=== PATIENT | male | born 1975 | race Two or more races ===

== ENCOUNTER 2018-08-31 13:20 | Inpatient (IN) | payer OTHER ==
[~2018-08-31] VITALS: Ht 182.9 cm; Wt 107.0 kg
[2018-08-31 13:59] LABS: BASOPHIL % 0.5 % (0-2); PLATELET COUNT 172 x10^3mcL (130-400)
[2018-08-31 14:04] LABS: RED CELL DISTRIBUTION WIDTH 22.9 % (11.5-14.5)
[2018-08-31 14:26] LABS: T3 TOTAL 1.1 ng/mL
[2018-08-31 14:31] LABS: CALCIUM 8.6 mg/dL (8.5-10.1); CHLORIDE SERUM 105 mmol/L (98-107); GFR1 > 60 mL/min; GLUCOSE SERUM 175 mg/dL (74-106); POTASSIUM SERUM 4.6 mmol/L (3.5-5.1); SODIUM SERUM 138 mmol/L (136-145)
[2018-08-31 14:43] LABS: ALBUMIN 3.5 g/dL (3.4-5.0); ALKALINE PHOSPHATASE 110 U/L (46-116); ALT/SGPT 283 U/L (16-63); AST/SGOT 307 U/L (15-37); BILIRUBIN TOTAL 0.95 mg/dL (0.20-1.00)
[2018-08-31 14:47] LABS: FREE T4 1.28 ng/dL (0.76-1.46); FREE THYROXINE INDEX 3.6 ug/dL (1.4-4.5); T4(THYROXINE) 8.9 ug/dL (4.7-13.3)
[2018-08-31 14:52] LABS: TOTAL PROTEIN, SERUM 8.3 g/dL (6.4-8.2)
[2018-08-31 16:29] LABS: AMPHETAMINE QUAL UR NONE DETECTED (See below)
[2018-08-31] MEDS ORDERED: LISINOPRIL2.5 MG (17:34)
[2018-08-31 17:35] LABS: microscopic required? YES; urine erythrocyte NEGATIVE (NEGATIVE)
[2018-08-31 17:38] LABS: MAGNESIUM 1.6 mg/dL (1.8-2.4); PHOSPHOROUS 2.3 mg/dL (2.5-4.9)
[2018-08-31 17:40] LABS: CHOLESTEROL/HDL RATIO 4.1
[2018-08-31 18:06] VITALS: BP 175/111
[2018-08-31 20:30] VITALS: BP 164/101
[2018-08-31 22:04] VITALS: BP 148/90
[2018-09-01 06:19] VITALS: BP 170/117
[2018-09-01 06:23] LABS: BASOPHIL % 0.5 % (0-2); PLATELET COUNT 138 x10^3mcL (130-400)
[2018-09-01 06:41] LABS: RED CELL DISTRIBUTION WIDTH 22.5 % (11.5-14.5)
[2018-09-01 07:06] LABS: CALCIUM 8.3 mg/dL (8.5-10.1); CARBON DIOXIDE 27.2 mmol/L (21-32); CHLORIDE SERUM 102 mmol/L (98-107); CREATININE SERUM 0.8 mg/dL (0.7-1.3); GFR1 > 60 mL/min; GLUCOSE SERUM 97 mg/dL (74-106); MAGNESIUM 1.7 mg/dL (1.8-2.4); PHOSPHOROUS 3.5 mg/dL (2.5-4.9); POTASSIUM SERUM 4.1 mmol/L (3.5-5.1); SODIUM SERUM 137 mmol/L (136-145)
[2018-09-01 08:52] LABS: ovalocyte/elliptocyte 1+; rbc morphology (normal/abnorm) ABNORMAL (NORMAL); tear drop cell (dacryocyte) 1+
[2018-09-01 09:35] VITALS: BP 154/104
[2018-09-01 13:51] VITALS: BP 178/110
[2018-09-01 17:30] VITALS: BP 158/103
[2018-09-01 20:44] VITALS: BP 159/111
[2018-09-02 06:16] VITALS: BP 168/118
[2018-09-02 08:00] LABS: CALCIUM 8.7 mg/dL (8.5-10.1); CARBON DIOXIDE 24.7 mmol/L (21-32); CHLORIDE SERUM 104 mmol/L (98-107); CREATININE SERUM 0.8 mg/dL (0.7-1.3); GFR1 > 60 mL/min; GLUCOSE SERUM 95 mg/dL (74-106); MAGNESIUM 1.9 mg/dL (1.8-2.4); PHOSPHOROUS 4.5 mg/dL (2.5-4.9); POTASSIUM SERUM 3.9 mmol/L (3.5-5.1); SODIUM SERUM 140 mmol/L (136-145)
[2018-09-02 08:22] LABS: BASOPHIL % 0.4 % (0-2); PLATELET COUNT 159 x10^3mcL (130-400); RED CELL DISTRIBUTION WIDTH 22.9 % (11.5-14.5)
[2018-09-02 08:23] LABS: rbc morphology (normal/abnorm) ABNORMAL (NORMAL)
[2018-09-02 10:58] LABS: BILIRUBIN DIRECT 0.37 mg/dL (0.0-0.2); BILIRUBIN TOTAL 1.13 mg/dL (0.20-1.00); TOTAL PROTEIN, SERUM 7.6 g/dL (6.4-8.2)
[2018-09-02 10:59] LABS: ALBUMIN 3.2 g/dL (3.4-5.0)
[2018-09-02 11:07] VITALS: BP 165/110
[2018-09-02 13:04] VITALS: BP 145/110
[2018-09-02] MEDS ORDERED: ZES5 PO (14:21)
[2018-09-02] MEDS ORDERED: METOPROLOL TART25 M1 PO (14:21)
[2018-09-02] MEDS ORDERED: METFORMIN HCL500 MG PO (14:22)
[2018-09-02 14:58] VITALS: BP 145/110
== END 2018-09-02 15:50 | disposition home or self-care (01) | DRG 756 ==
LOC: ED 13:20 → DU 17:03 → MU 09-02 10:51
PROVIDERS: Emergency Medicine; Family Medicine
DX: F41.9 Anxiety disorder, unspecified (principal); E83.39 Other disorders of phosphorus metabolism; F10.20 Alcohol dependence, uncomplicated; E83.42 Hypomagnesemia; E78.5 Hyperlipidemia, unspecified; R00.0 Tachycardia, unspecified; G47.00 Insomnia, unspecified; I10 Essential (primary) hypertension; L20.9 Atopic dermatitis, unspecified; Y90.9 Presence of alcohol in blood, level not specified; E11.9 Type 2 diabetes mellitus without complications
CPT/HCPCS: 82962; 83880; 84439; A9500; G0480; J2060; J2785; J7030; Q0092

== ENCOUNTER 2018-11-29 21:21 | Inpatient (IN) | payer OTHER ==
[~2018-11-29] VITALS: Ht 180.3 cm; Wt 111.6 kg
[~2018-11-29 21:21] MED LIST: LISINOPRIL2.5 MG; METFORMIN HCL500 MG PO; METOPROLOL TART25 M1 PO; ZES5 PO
[2018-11-29 21:24] VITALS: Ht 180.3 cm; Wt 111.6 kg
[2018-11-29 23:11] LABS: PLATELET COUNT 360 x10^3mcL (130-400)
[2018-11-29 23:12] LABS: RED CELL DISTRIBUTION WIDTH 20.4 % (11.5-14.5)
[2018-11-29 23:19] LABS: CALCIUM 6.6 mg/dL (8.5-10.1); CARBON DIOXIDE 21.3 mmol/L (21-32); CHLORIDE SERUM 107 mmol/L (98-107); GFR1 > 60 mL/min; GLUCOSE SERUM 178 mg/dL (74-106); POTASSIUM SERUM 3.5 mmol/L (3.5-5.1); SODIUM SERUM 140 mmol/L (136-145)
[2018-11-29 23:31] LABS: ALKALINE PHOSPHATASE 329 U/L (46-116); ALT/SGPT 57 U/L (16-63); AST/SGOT 365 U/L (15-37); BILIRUBIN TOTAL 2.5 mg/dL (0.20-1.00); LIPASE 462 IU/L (73-393); TOTAL PROTEIN, SERUM 7.9 g/dL (6.4-8.2)
[2018-11-29 23:48] LABS: MONOCYTE 3 % (0-7); SEGMENTED NEUTROPHILS 90 % (37-75)
[2018-11-30] VITALS (7 sets, daily range): BP systolic 137–169; BP diastolic 87–107
[2018-11-30] LABS: rbc morphology (normal/abnorm) ABNORMAL (NORMAL)
[2018-11-30 01:19] LABS: MAGNESIUM 1.6 mg/dL (1.8-2.4); PHOSPHOROUS 1.6 mg/dL (2.5-4.9)
[2018-11-30 01:20] LABS: CHOLESTEROL/HDL RATIO 20.3
[2018-11-30 01:28] LABS: T3 TOTAL 1.01 ng/mL
[2018-11-30 01:30] LABS: FREE T4 1.56 ng/dL (0.76-1.46); FREE THYROXINE INDEX 3.7 ug/dL (1.4-4.5); T4(THYROXINE) 9.2 ug/dL (4.7-13.3)
[2018-11-30 06:16] LABS: PLATELET COUNT 284 x10^3mcL (130-400)
[2018-11-30 06:25] LABS: ALKALINE PHOSPHATASE 290 U/L (46-116); ALT/SGPT 50 U/L (16-63); AST/SGOT 338 U/L (15-37); BILIRUBIN DIRECT 2.01 mg/dL (0.0-0.2); BILIRUBIN TOTAL 2.72 mg/dL (0.20-1.00); CALCIUM 6.8 mg/dL (8.5-10.1); CARBON DIOXIDE 23.4 mmol/L (21-32); CHLORIDE SERUM 108 mmol/L (98-107); CREATININE SERUM 0.8 mg/dL (0.7-1.3); GFR1 > 60 mL/min; GLUCOSE SERUM 113 mg/dL (74-106); LIPASE 337 IU/L (73-393); MAGNESIUM 1.9 mg/dL (1.8-2.4); PHOSPHOROUS 1.8 mg/dL (2.5-4.9); POTASSIUM SERUM 3.4 mmol/L (3.5-5.1); SODIUM SERUM 143 mmol/L (136-145); TOTAL PROTEIN, SERUM 7.3 g/dL (6.4-8.2)
[2018-11-30 06:31] LABS: RED CELL DISTRIBUTION WIDTH 20.7 % (11.5-14.5)
[2018-11-30 06:37] LABS: ALBUMIN 1.8 g/dL (3.4-5.0)
[2018-11-30 07:29] LABS: microscopic required? NO
[2018-11-30 07:51] LABS: AMPHETAMINE QUAL UR NONE DETECTED (See below)
[2018-11-30 08:10] LABS: UA SPECIFIC GRAVITY 1.025 (1.005-1.035); urine erythrocyte NEGATIVE (NEGATIVE)
[2018-11-30 10:21] LABS: BAND NEUTROPHIL 0 % (0-10); BASOPHIL 0 % (0-2); MONOCYTE 4 % (0-7); SEGMENTED NEUTROPHILS 90 % (37-75)
[2018-11-30 10:22] LABS: rbc morphology (normal/abnorm) ABNORMAL (NORMAL)
[2018-11-30 10:23] LABS: PLATELET MORPHOLOGY PLATELETS INCREASED
[2018-12-01 07:07] VITALS: BP 127/72
[2018-12-01 07:30] LABS: BASOPHIL % 0.8 % (0-2); PLATELET COUNT 200 x10^3mcL (130-400)
[2018-12-01 07:33] LABS: RED CELL DISTRIBUTION WIDTH 18.5 % (11.5-14.5)
[2018-12-01 08:14] LABS: CARBON DIOXIDE 24.9 mmol/L (21-32); CHLORIDE SERUM 106 mmol/L (98-107); GFR1 > 60 mL/min; GLUCOSE SERUM 104 mg/dL (74-106); MAGNESIUM 1.4 mg/dL (1.8-2.4); PHOSPHOROUS 1.7 mg/dL (2.5-4.9); SODIUM SERUM 140 mmol/L (136-145)
[2018-12-01 10:03] VITALS: BP 124/78
[2018-12-01 12:38] LABS: PLATELET COUNT 212 x10^3mcL (130-400)
[2018-12-01 13:18] VITALS: BP 118/74
[2018-12-01 13:45] LABS: RED CELL DISTRIBUTION WIDTH 19.4 % (11.5-14.5)
[2018-12-01 14:20] LABS: BAND NEUTROPHIL 16 % (0-10); BASOPHIL 0 % (0-2); MONOCYTE 2 % (0-7); SEGMENTED NEUTROPHILS 73 % (37-75)
[2018-12-01 14:21] LABS: PLATELET MORPHOLOGY GIANT PLATELET SEEN; rbc morphology (normal/abnorm) ABNORMAL (NORMAL); target cell (codocyte) 2+
[2018-12-01 17:43] VITALS: BP 103/54
[2018-12-01 19:04] LABS: PLATELET COUNT 237 x10^3mcL (130-400)
[2018-12-01 19:06] LABS: RED CELL DISTRIBUTION WIDTH 19.3 % (11.5-14.5)
[2018-12-01 19:21] LABS: BAND NEUTROPHIL 7 % (0-10); METAMYELOCTE 1 % (0-2); MONOCYTE 4 % (0-7); SEGMENTED NEUTROPHILS 71 % (37-75)
[2018-12-01 19:24] LABS: PLATELET MORPHOLOGY LARGE PLATELET SEEN; rbc morphology (normal/abnorm) ABNORMAL (NORMAL); target cell (codocyte) 2+
[2018-12-01 20:11] VITALS: BP 125/78
[2018-12-02 01:18] LABS: PLATELET COUNT 209 x10^3mcL (130-400)
[2018-12-02 01:29] LABS: RED CELL DISTRIBUTION WIDTH 17.9 % (11.5-14.5)
[2018-12-02 01:36] LABS: BAND NEUTROPHIL 5 % (0-10); METAMYELOCTE 1 % (0-2); MONOCYTE 3 % (0-7); MYELOCYTE 1 % (0-2); SEGMENTED NEUTROPHILS 75 % (37-75)
[2018-12-02 01:39] LABS: PLATELET MORPHOLOGY PLATELETS NORMAL; rbc morphology (normal/abnorm) ABNORMAL (NORMAL); target cell (codocyte) 1+
[2018-12-02 05:55] VITALS: BP 123/78
[2018-12-02 07:23] LABS: PLATELET COUNT 239 x10^3mcL (130-400)
[2018-12-02 07:32] LABS: RED CELL DISTRIBUTION WIDTH 19.2 % (11.5-14.5)
[2018-12-02 07:41] LABS: CALCIUM 7.7 mg/dL (8.5-10.1); CARBON DIOXIDE 25.5 mmol/L (21-32); CHLORIDE SERUM 108 mmol/L (98-107); GFR1 > 60 mL/min; GLUCOSE SERUM 93 mg/dL (74-106); MAGNESIUM 1.8 mg/dL (1.8-2.4); PHOSPHOROUS 1.9 mg/dL (2.5-4.9); POTASSIUM SERUM 4.2 mmol/L (3.5-5.1); SODIUM SERUM 144 mmol/L (136-145)
[2018-12-02 09:55] VITALS: BP 141/75
[2018-12-02] MEDS ORDERED: L40I PO (15:17)
[2018-12-02] MEDS ORDERED: ALD50 PO (15:17)
[2018-12-02] MEDS ORDERED: NATURAL IRON65 MG PO (15:18)
[2018-12-02] MEDS ORDERED: LACTULOSE10 GM/152 PO (15:19)
[2018-12-02 15:50] VITALS: BP 138/82
[2018-12-02 16:00] VITALS: BP 134/82
[2018-12-02 17:25] LABS: BAND NEUTROPHIL 3 % (0-10); BASOPHIL 0 % (0-2); MONOCYTE 1 % (0-7); SEGMENTED NEUTROPHILS 73 % (37-75); rbc morphology (normal/abnorm) ABNORMAL (NORMAL)
== END 2018-12-02 16:31 | disposition home or self-care (01) | DRG 720 ==
LOC: ED 21:21 → DU 11-30 00:01
PROVIDERS: Emergency Medicine; Internal Medicine Gastroenterology; ADMIT Internal Medicine
PROC: 0DJ08ZZ Inspection of Upper Intestinal Tract, Via Natural or Artificial Opening Endoscopic (ICD-10-PCS; principal; 2018-12-01 07:30)
PROC: 0DBG8ZZ Excision of Left Large Intestine, Via Natural or Artificial Opening Endoscopic (ICD-10-PCS; 2018-12-02 10:30)
DX: A41.9 Sepsis, unspecified organism (principal); G92 Toxic encephalopathy; K85.20 Alcohol induced acute pancreatitis without necrosis or infection; E87.2 Acidosis; E44.0 Moderate protein-calorie malnutrition; D62 Acute posthemorrhagic anemia; E83.39 Other disorders of phosphorus metabolism; E11.65 Type 2 diabetes mellitus with hyperglycemia; E83.51 Hypocalcemia; K70.31 Alcoholic cirrhosis of liver with ascites; F10.129 Alcohol abuse with intoxication, unspecified; E66.9 Obesity, unspecified; D12.4 Benign neoplasm of descending colon; K64.8 Other hemorrhoids; E78.5 Hyperlipidemia, unspecified; I10 Essential (primary) hypertension; Y90.0 Blood alcohol level of less than 20 mg/100 ml; Z68.32 Body mass index [BMI] 32.0-32.9, adult; Z79.84 Long term (current) use of oral hypoglycemic drugs; Z79.899 Other long term (current) drug therapy; Z71.41 Alcohol abuse counseling and surveillance of alcoholic
CPT/HCPCS: 43235; 45378; 84439; 87804; C9113; G0480; J1200; J1610; J1940; J2060; J2250; J2310; J2354; J2405; J2543; J3010; J3411; J3475; J3490; J7030; Q0092

== ENCOUNTER 2019-02-11 14:23 | Inpatient (IN) | payer OTHER ==
[~2019-02-11] VITALS: Ht 182.9 cm; Wt 86.8 kg
[~2019-02-11 14:23] MED LIST changes: +ALD50 PO; +L40I PO; +LACTULOSE10 GM/152 PO; +NATURAL IRON65 MG PO
[2019-02-11 14:25] VITALS: Ht 182.9 cm; Wt 86.8 kg
[2019-02-11 15:25] LABS: BASOPHIL % 0.9 % (0-2); PLATELET COUNT 186 x10^3mcL (130-400)
[2019-02-11 15:26] LABS: RED CELL DISTRIBUTION WIDTH 15.8 % (11.5-14.5)
[2019-02-11 15:37] LABS: CARBON DIOXIDE 18.1 mmol/L (21-32); CHLORIDE SERUM 102 mmol/L (98-107); CREATININE SERUM 1.4 mg/dL (0.7-1.3); GFR1 59 mL/min; GLUCOSE SERUM 152 mg/dL (74-106); POTASSIUM SERUM 3.6 mmol/L (3.5-5.1); SODIUM SERUM 140 mmol/L (136-145)
[2019-02-11 15:47] LABS: FREE T4 1.53 ng/dL (0.76-1.46)
[2019-02-11 15:50] LABS: ALKALINE PHOSPHATASE 136 U/L (46-116); ALT/SGPT 32 U/L (16-63); AST/SGOT 59 U/L (15-37); BILIRUBIN TOTAL 3.4 mg/dL (0.20-1.00); C REACTIVE PROTEIN 1.3 mg/dL (<=0.9)
[2019-02-11 15:57] LABS: TOTAL PROTEIN, SERUM 9.4 g/dL (6.4-8.2)
[2019-02-11 16:24] LABS: ERYTHROCYTE SED RATE 109 mm/hr (0-15)
[2019-02-11 16:28] LABS: CK-MB 0.5 ng/mL (0-3.6)
[2019-02-11] MEDS ORDERED: BENADRYL ALLERG25 M1 PO (16:29)
[2019-02-11] MEDS ORDERED: NATURE'S BLEND F1 MG PO (16:30)
[2019-02-11] MEDS ORDERED: PRILOSEC OTC20 M1 PO (16:30)
[2019-02-11 17:43] LABS: T3 TOTAL 0.92 ng/mL
[2019-02-11 19:19] LABS: MAGNESIUM 1.5 mg/dL (1.8-2.4); PHOSPHOROUS 2.6 mg/dL (2.5-4.9)
[2019-02-11 19:44] LABS: CHOLESTEROL/HDL RATIO 4.2
[2019-02-11 19:54] LABS: microscopic required? YES; urine erythrocyte TRACE (NEGATIVE)
[2019-02-11 20:01] VITALS: BP 159/103
[2019-02-11 20:13] LABS: AMPHETAMINE QUAL UR NONE DETECTED (See below)
[2019-02-11 23:08] VITALS: BP 139/62
[2019-02-12 03:11] VITALS: BP 134/77
[2019-02-12 05:08] LABS: BASOPHIL % 0.4 % (0-2)
[2019-02-12 05:09] LABS: PLATELET COUNT 100 x10^3mcL (130-400)
[2019-02-12 05:25] LABS: CALCIUM 8.5 mg/dL (8.5-10.1); CARBON DIOXIDE 25.4 mmol/L (21-32); CHLORIDE SERUM 104 mmol/L (98-107); CREATININE SERUM 1.1 mg/dL (0.7-1.3); GFR1 > 60 mL/min; GLUCOSE SERUM 107 mg/dL (74-106); MAGNESIUM 1.5 mg/dL (1.8-2.4); PHOSPHOROUS 3.2 mg/dL (2.5-4.9); POTASSIUM SERUM 3.3 mmol/L (3.5-5.1); SODIUM SERUM 136 mmol/L (136-145)
[2019-02-12 07:20] VITALS: BP 153/89
[2019-02-12 11:57] VITALS: BP 153/89
== END 2019-02-12 12:34 | disposition home or self-care (01) | DRG 243 ==
LOC: ED 14:23 → IC 18:24
PROVIDERS: Specialist; ADMIT Family Medicine
DX: K20.9 Esophagitis, unspecified (principal); N17.0 Acute kidney failure with tubular necrosis; K29.00 Acute gastritis without bleeding; E44.0 Moderate protein-calorie malnutrition; K70.30 Alcoholic cirrhosis of liver without ascites; I10 Essential (primary) hypertension; E78.00 Pure hypercholesterolemia, unspecified; F10.20 Alcohol dependence, uncomplicated; Y90.9 Presence of alcohol in blood, level not specified; E78.5 Hyperlipidemia, unspecified; E04.9 Nontoxic goiter, unspecified; D64.9 Anemia, unspecified; E83.42 Hypomagnesemia; Z68.25 Body mass index [BMI] 25.0-25.9, adult; E04.1 Nontoxic single thyroid nodule
CPT/HCPCS: 36600; 84439; G0480; J0696; J1200; J1940; J2270; J2405; J2543; J3010; J3490; J7030; Q0092; Q9967